=== PATIENT | male | born 1995 | race Two or more races ===

== ENCOUNTER 2023-11-28 14:03 | Emergency (ER) | payer MEDICAID, OTHER ==
[~2023-11-28] VITALS: Ht 175.3 cm; Wt 122.7 kg
[2023-11-28 17:41] LABS: Basophils # (auto) 0 10 ^3/uL (0-0.2); Basophils % (auto) 0.4 % (0.0-2.0); Eosinophils # (auto) 0.1 10 ^3/uL (0-0.8); Eosinophils % (auto) 1.3 % (0.0-7.0); Hematocrit 48.6 % (41.0-53.0); Hemoglobin 16.4 g/dL (13.5-17.5); Lymphocytes # (auto) 1.5 10 ^3/uL (0.4-5.4); Lymphocytes % (auto) 18.9 % (10.0-50.0); Mean Corpuscular Hemoglobin 29.6 pg (28.0-32.0); Mean Corpuscular Hgb Conc. 33.7 g/dL (32.0-36.0); Mean Corpuscular Volume 87.9 fL (80.0-100.0); Monocytes # (auto) 0.5 10 ^3/uL (0-1.3); Monocytes % (auto) 6.4 % (0.0-12.0); Neutrophils # (auto) 5.7 10 ^3/uL (1.6-8.6); Nucleated Red Blood Cells % 0.4 %; Red Blood Cells 5.53 10^6/uL (4.5-5.90); Red Cell Distribution Width 13.7 % (11.8-14.3); White Blood Cell 7.8 10^3/uL (4.4-10.8)
[2023-11-28 18:17] LABS: Alanine Aminotransferase 48 U/L (7-40); Albumin 4.9 g/dL (3.2-4.8); Alkaline Phosphatase 117 U/L (46-116); Anion Gap 6 (5-15); Aspartate Aminotransferase 16 U/L (13-40); Bilirubin, Total 0.3 mg/dL (0.2-1.0); Blood Urea Nitrogen 17 mg/dL (9-23); Calcium 9.9 mg/dL (8.5-10.1); Carbon Dioxide 25 mmol/L (20-30); Chloride 106 mmol/L (98-107); Glucose 89 mg/dL (74-106); Potassium 4.1 mmol/L (3.5-5.1); Sodium 137 mmol/L (136-145); Total Protein 7.6 g/dL (5.7-8.2)
[2023-11-29] MEDS: HYDROcodone-ACET 5/325MG TAB PO ONE (00:26)
[2023-11-29] MEDS: ONDANSETRON ODT 4 MG TAB PO ONE (00:27)
[2023-11-29 03:20] VITALS: BP 126/79; PULSE 76; RESP 20; TEMP 98.5; O2SAT 96
== END 2023-11-28 20:50 | disposition short-term general hospital (02) ==
LOC: EDBD 14:03 → ER 14:06
DX: S93.402A Sprain of unspecified ligament of left ankle, initial encounter (principal); S93.602A Unspecified sprain of left foot, initial encounter; G93.89 Other specified disorders of brain; I10 Essential (primary) hypertension; W18.09XA Striking against other object with subsequent fall, initial encounter; Y93.89 Activity, other specified; Y92.89 Other specified places as the place of occurrence of the external cause; Y99.8 Other external cause status
CPT/HCPCS: 36415; 70450; 73610; 73630; 80053; 84484; 85025; 93005

== ENCOUNTER 2024-02-13 18:12 | Emergency (ER) | payer MEDICAID ==
[~2024-02-13] VITALS: Ht 172.7 cm; Wt 131.8 kg
[2024-02-13 21:54] LABS: Basophils # (auto) 0 10 ^3/uL (0-0.2); Basophils % (auto) 0.3 % (0.0-2.0); Eosinophils # (auto) 0 10 ^3/uL (0-0.8); Eosinophils % (auto) 0.2 % (0.0-7.0); Hematocrit 42.8 % (41.0-53.0); Hemoglobin 14.8 g/dL (13.5-17.5); Lymphocytes # (auto) 1.9 10 ^3/uL (0.4-5.4); Lymphocytes % (auto) 19.2 % (10.0-50.0); Mean Corpuscular Hemoglobin 31.1 pg (28.0-32.0); Mean Corpuscular Hgb Conc. 34.7 g/dL (32.0-36.0); Mean Corpuscular Volume 89.7 fL (80.0-100.0); Monocytes # (auto) 0.8 10 ^3/uL (0-1.3); Monocytes % (auto) 7.6 % (0.0-12.0); Neutrophils # (auto) 7.4 10 ^3/uL (1.6-8.6); Neutrophils % (auto) 72.7 % (37.0-80.0); Nucleated Red Blood Cells % 0.2 %; Platelet Count (auto) 209 10^3/uL (140-450); Red Blood Cells 4.77 10^6/uL (4.5-5.90); Red Cell Distribution Width 17.4 % (11.8-14.3); White Blood Cell 10.1 10^3/uL (4.4-10.8)
[2024-02-13 22:05] LABS: Alanine Aminotransferase 45 U/L (7-40); Albumin 4.3 g/dL (3.2-4.8); Alkaline Phosphatase 61 U/L (46-116); Anion Gap 6 (5-15); Aspartate Aminotransferase 11 U/L (13-40); BUN/Creatinine Ratio 17.4 (10.0-20.0); Bilirubin, Total 1.3 mg/dL (0.2-1.0); Blood Urea Nitrogen 15 mg/dL (9-23); Carbon Dioxide 27 mmol/L (20-30); Chloride 104 mmol/L (98-107); Glucose 119 mg/dL (74-106); Potassium 4.2 mmol/L (3.5-5.1); Sodium 137 mmol/L (136-145)
[2024-02-13 22:06] LABS: Total Protein 6.5 g/dL (5.7-8.2)
[2024-02-13 23:17] VITALS: PULSE 120; RESP 18; O2SAT 96
[2024-02-13] MEDS: levETIRAcetam 1000 mg/100ml 100 ML IV ONE (23:46)
[2024-02-14 07:27] VITALS: PULSE 94; RESP 16; O2SAT 96
[2024-02-14 09:28] LABS: COVID19 ANTIGEN SOFIA FIA NEGATIVE (NEGATIVE)
[2024-02-14 10:24] LABS: Urine Bacteria None Seen /hpf (None Seen)
[2024-02-14 10:42] LABS: Urine Blood Negative /uL (Negative); Urine Clarity Clear (Clear); Urine Color Light-Yellow (Yellow); Urine Protein, UAD Negative (Negative); Urine Specific Gravity 1.013 (1.001-1.035); Urine Urobilinogen Normal (Negative); Urine WBC <1 /hpf (0 - 3)
[2024-02-14] MEDS ORDERED: LEVE500T40 PO (16:53)
[2024-02-14] MEDS ORDERED: levETIRAcetam 500 MG TAB PO SCH (18:00)
[2024-02-14] MEDS: levETIRAcetam 500 MG TAB PO SCH (19:01)
[2024-02-15] MEDS: MORPHINE SULFATE 4 MG/ML SYR/VIAL IV ONE (05:15)
[2024-02-15] MEDS: ONDANSETRON HCL 4 MG/2 ML VIAL IV ONE (05:15)
[2024-02-15 07:40] VITALS: PULSE 95; RESP 20; O2SAT 95
[2024-02-15 10:58] VITALS: BP 117/84; PULSE 89; RESP 20; TEMP 98.1; O2SAT 97
== END 2024-02-15 11:21 | disposition short-term general hospital (02) ==
LOC: ER 18:12 → EDBD 18:12 → ER 02-15 11:21
DX: G25.2 Other specified forms of tremor (principal); I67.9 Cerebrovascular disease, unspecified; I10 Essential (primary) hypertension; Z20.822 Contact with and (suspected) exposure to COVID-19
CPT/HCPCS: 36415; 70450; 80053; 81001; 85025; 87426; 96365; 96375; 99285; J1953; J2270; J2405